=== PATIENT | male | born 1955 | race Caucasian/White ===

== ENCOUNTER 2021-12-08 10:41 | Inpatient (IN) | payer MEDICARE ==
[~2021-12-08] VITALS: Ht 177.8 cm; Wt 124.7 kg
[~2021-12-08 10:41] MED LIST: ALEVE220 M1 PO; AMBIEN10 MG; CLINDAMYCIN HC300 MG; IBUPROFEN600 MG; LOVENOX40 MG/0.4; NORCO 7.5-3251 EACH; PREVACID15 M2 PO; ULTRAM50 MG PO; VALIUM5 MG; Z.0.PREDNISONE5 MG PO; Z.0.ULTRAM 50MG50 MG EP; ZOFRAN ODT4 MG PO; [UNRECOGNIZED DRUG - OTHER] PO
[2021-12-08] MEDS ORDERED: SODIUM CHLORIDE 0.9% 1000ML 1,000 ML IV STA (11:05)
[2021-12-08] MEDS ORDERED: Morphine 4mg INJECTION 4 MG/ML INJ IV STA (11:05)
[2021-12-08 11:14] LABS: BASOPHILS % 0.3 % (0.0-1.0); EOSINOPHILS % 0.3 % (0.0-6.0); HEMATOCRIT 43.7 % (38.2-49.6); HEMOGLOBIN 14.1 g/dL (14.0-18.0); LYMPHOCYTES # (AUTO) 1.1 (1.0-3.2); LYMPHOCYTES % 8.3 % (18.0-39.1); MEAN CORPUSCULAR HEMOGLOBIN 33.7 pg (28-32); MEAN CORPUSCULAR HGB CONC 32.3 g/dL (31-35); MEAN CORPUSCULAR VOLUME 104.3 fL (81-99); MONOCYTES # (AUTO) 0.8 (0.2-0.8); NEUTROPHILS # (AUTO) 11.1 (2.1-6.9); NEUTROPHILS % 84.7 % (38.7-80.0); PLATELET COUNT 194 x10e3/uL (140-360); RED BLOOD COUNT 4.19 x10e6/uL (4.3-5.7); RED CELL DISTRIBUTION WIDTH 14.6 % (11.7-14.4)
[2021-12-08] MEDS ORDERED: ONDANSETRON HCL INJ 2MG/ML 2ML 2 MG/ML VIAL IV ONE (11:20)
[2021-12-08 11:43] LABS: INR 1.05; PROTHROMBIN TIME 14.6 seconds (11.9-14.5)
[2021-12-08 11:44] LABS: PARTIAL THROMBOPLASTIN TIME 24.9 seconds (23.8-35.5)
[2021-12-08 11:53] LABS: ALANINE AMINOTRANSFERASE 26 IU/L (0-55); ALBUMIN 2.7 g/dL (3.5-5.0); ALBUMIN/GLOBULIN RATIO 0.8 (0.8-2.0); ALKALINE PHOSPHATASE 147 IU/L (40-150); ANION GAP 13.4 mmol/L (8-16); BLOOD UREA NITROGEN 8 mg/dL (7-26); BUN/CREATININE RATIO 8 (6-25); CALCIUM 7.9 mg/dL (8.4-10.2); CARBON DIOXIDE 22 mmol/L (22-29); CHLORIDE 108 mmol/L (98-107); CREATINE KINASE 80 IU/L (30-200); GLUCOSE 89 mg/dL (74-118); LIPASE 943 U/L (8-78); MAGNESIUM 1.7 MG/DL (1.3-2.1); POTASSIUM 3.4 mmol/L (3.5-5.1); SODIUM 140 mmol/L (136-145)
[2021-12-08 11:54] LABS: CHOL/HDL RATIO 2.2 (3.9-4.7); CHOLESTEROL 91 MD/DL (0-199); HDL CHOLESTEROL 42 MG/DL (40-60); LDL CHOLESTEROL 39 MG/DL (60-130); TRIGLYCERIDES 49 MG/DL (0-149)
[2021-12-08 12:02] LABS: AMPHETAMINES SCREEN,URINE NEGATIVE (NEGATIVE); BENZODIAZEPINES SCREEN,URINE NEGATIVE (NEGATIVE); CLARITY,URINE SL CLOUDY (CLEAR); COLOR,URINE YELLOW (YELLOW); LEUKOCYTE ESTERASE ,URINE NEGATIVE (NEGATIVE); PHENCYCLIDINE SCREEN,URINE NEGATIVE (NEGATIVE)
[2021-12-08 12:03] LABS: BACTERIA,URINE MODERATE /HPF; EPITHELIAL CELLS,URINE MODERATE /LPF; KETONES,URINE 2+ (NEGATIVE); NITRITE,URINE NEGATIVE (NEGATIVE); PROTEIN,URINE DIPSTICK 2+ (NEGATIVE); RBC,URINE 0-5 /HPF (0-5); URINE UROBILINOGEN 1 mg/dL (0.2 - 1)
[2021-12-08 12:04] LABS: AMORPHOUS SEDIMENT,URINE MODERATE (FEW); CALCIUM OXALATE CRYSTALS,UR FEW (FEW); WBC,URINE (MAN) 21-50 /HPF (0-5)
[2021-12-08] MEDS ORDERED: PROMETHAZINE 25MG/ NS 50ML (IV) IV ONE (12:15)
[2021-12-08] MEDS ORDERED: IOPAMIDOL 370 MG/ML 100 ML INFUS..BTL INJ ONE (12:47)
[2021-12-08] MEDS ORDERED: ONDANSETRON HCL INJ 2MG/ML 2ML 2 MG/ML VIAL IV NR (13:28)
[2021-12-08] MEDS ORDERED: HYDROMORPHONE 1MG/1ML INJ IV PRN (13:30)
[2021-12-08] MEDS ORDERED: HYDROMORPHONE 1MG/1ML INJ IV NR (13:30)
[2021-12-08] MEDS ORDERED: D5.45%NS/KCL 20MEQ 1,000 ML IV SCH (14:00)
[2021-12-08] MEDS ORDERED: PROMETHAZINE HCL (IM) 25 MG/ML VIAL IM PRN (14:00)
[2021-12-08] MEDS ORDERED: ONDANSETRON HCL INJ 2MG/ML 2ML 2 MG/ML VIAL IV PRN ×2 (14:00→18:45)
[2021-12-08 16:03] VITALS: BP 144/88
[2021-12-08 16:32] VITALS: BP 144/88
[2021-12-08] MEDS: HYDROMORPHONE 1MG/1ML INJ IV PRN ×2 (16:50→21:02)
[2021-12-08] MEDS: ONDANSETRON HCL INJ 2MG/ML 2ML 2 MG/ML VIAL IV PRN ×2 (18:36→22:28)
[2021-12-08] MEDS ORDERED: ACETAMINOPHEN 325 MG SUPP PR PRN (18:45)
[2021-12-08] MEDS ORDERED: D5NS/KCL 20MEQ 1,000 ML IV SCH (18:45)
[2021-12-08] MEDS ORDERED: PROMETHAZINE 12.5MG/ NACL 0.9% 12.5 MG/50 ML BAG IV PRN (18:45)
[2021-12-08] MEDS ORDERED: LORAZEPAM INJ 2 MG/ML VIAL IV PRN (19:00)
[2021-12-08 20:00] VITALS: BP 148/80
[2021-12-08] MEDS: LORAZEPAM INJ 2 MG/ML VIAL IV PRN (21:02)
[2021-12-09] VITALS (8 sets, daily range): BP systolic 100–141; BP diastolic 81–98
[2021-12-09] MEDS: LACTATED RINGER'S 1,000 ML INJ SCH ×4 (00:47→20:52)
[2021-12-09] MEDS: HYDROMORPHONE 1MG/1ML INJ IV PRN ×5 (02:10→22:05)
[2021-12-09] MEDS: LORAZEPAM INJ 2 MG/ML VIAL IV PRN (02:10)
[2021-12-09 06:10] LABS: BASOPHILS % 0.2 % (0.0-1.0); EOSINOPHILS # (AUTO) 0.1 (0.0-0.4); EOSINOPHILS % 0.6 % (0.0-6.0); HEMATOCRIT 40.3 % (38.2-49.6); HEMOGLOBIN 12.7 g/dL (14.0-18.0); LYMPHOCYTES # (AUTO) 0.9 (1.0-3.2); LYMPHOCYTES % 8.6 % (18.0-39.1); MEAN CORPUSCULAR HEMOGLOBIN 33.3 pg (28-32); MEAN CORPUSCULAR HGB CONC 31.5 g/dL (31-35); MEAN CORPUSCULAR VOLUME 105.8 fL (81-99); MONOCYTES # (AUTO) 0.7 (0.2-0.8); MONOCYTES % 6.8 % (4.4-11.3); NEUTROPHILS # (AUTO) 8.5 (2.1-6.9); NEUTROPHILS % 83.4 % (38.7-80.0); PLATELET COUNT 170 x10e3/uL (140-360); RED BLOOD COUNT 3.81 x10e6/uL (4.3-5.7); RED CELL DISTRIBUTION WIDTH 14.8 % (11.7-14.4)
[2021-12-09 07:02] LABS: ALBUMIN 2.4 g/dL (3.5-5.0); ALBUMIN/GLOBULIN RATIO 0.8 (0.8-2.0); ANION GAP 8.7 mmol/L (8-16); CREATININE, SERUM 0.88 mg/dL (0.72-1.25); POTASSIUM 3.7 mmol/L (3.5-5.1)
[2021-12-09 07:32] LABS: MAGNESIUM 1.7 MG/DL (1.3-2.1)
[2021-12-09 07:53] LABS: THYROID STIMULATING HORMONE 0.86 uIU/mL (0.350-4.940)
[2021-12-09] MEDS: ONDANSETRON HCL INJ 2MG/ML 2ML 2 MG/ML VIAL IV PRN ×4 (08:19→22:05)
[2021-12-09] MEDS: TAMSULOSIN HCL 0.4 MG CAP PO SCH ×2 (16:35→17:00)
[2021-12-09] MEDS: ENOXAPARIN SOD INJ 40 MG/0.4 ML SYR SC SCH (16:35)
[2021-12-10] VITALS (7 sets, daily range): BP systolic 99–122; BP diastolic 64–82
[2021-12-10] MEDS: LACTATED RINGER'S 1,000 ML INJ SCH ×3 (02:06→19:55)
[2021-12-10] MEDS: ONDANSETRON HCL INJ 2MG/ML 2ML 2 MG/ML VIAL IV PRN ×3 (02:06→22:09)
[2021-12-10] MEDS: LORAZEPAM INJ 2 MG/ML VIAL IV PRN (02:06)
[2021-12-10] MEDS: HYDROMORPHONE 1MG/1ML INJ IV PRN ×5 (02:06→22:09)
[2021-12-10 06:02] LABS: BASOPHILS % 0.4 % (0.0-1.0); EOSINOPHILS # (AUTO) 0.2 (0.0-0.4); EOSINOPHILS % 2.5 % (0.0-6.0); HEMATOCRIT 40.6 % (38.2-49.6); HEMOGLOBIN 12.9 g/dL (14.0-18.0); LYMPHOCYTES % 14.6 % (18.0-39.1); MEAN CORPUSCULAR HEMOGLOBIN 34.3 pg (28-32); MEAN CORPUSCULAR HGB CONC 31.8 g/dL (31-35); MONOCYTES # (AUTO) 0.6 (0.2-0.8); NEUTROPHILS # (AUTO) 5.1 (2.1-6.9); NEUTROPHILS % 74.2 % (38.7-80.0); PLATELET COUNT 155 x10e3/uL (140-360); RED BLOOD COUNT 3.76 x10e6/uL (4.3-5.7)
[2021-12-10 06:34] LABS: ALBUMIN/GLOBULIN RATIO 0.6 (0.8-2.0); ANION GAP 11.2 mmol/L (8-16); CALCIUM 7.6 mg/dL (8.4-10.2); CREATININE, SERUM 0.81 mg/dL (0.72-1.25); MAGNESIUM 1.5 MG/DL (1.3-2.1); PHOSPHORUS 2.5 MG/DL (2.3-4.7); POTASSIUM 4.2 mmol/L (3.5-5.1)
[2021-12-10] MEDS: IRON SUCROSE 100 MG in SODIUM CHLORIDE 0.9% 100 ML 100 ML IV SCH (09:50)
[2021-12-10] MEDS: Vancomycin IV 1 GM in SODIUM CHLORIDE 0.9% 250ML 250 ML IV SCH ×2 (11:45→21:02)
[2021-12-10] MEDS: ENOXAPARIN SOD INJ 40 MG/0.4 ML SYR SC SCH (17:04)
[2021-12-10] MEDS: TAMSULOSIN HCL 0.4 MG CAP PO SCH (17:04)
[2021-12-11] VITALS (7 sets, daily range): BP systolic 97–110; BP diastolic 70–86
[2021-12-11 06:44] LABS: ALBUMIN 2.2 g/dL (3.5-5.0); ALBUMIN/GLOBULIN RATIO 0.6 (0.8-2.0); ANION GAP 12.3 mmol/L (8-16); CALCIUM 7.8 mg/dL (8.4-10.2); CHOL/HDL RATIO 2.8 (3.9-4.7); CREATININE, SERUM 0.86 mg/dL (0.72-1.25); POTASSIUM 4.3 mmol/L (3.5-5.1)
[2021-12-11] MEDS: ONDANSETRON HCL INJ 2MG/ML 2ML 2 MG/ML VIAL IV PRN ×2 (07:11→20:09)
[2021-12-11] MEDS: HYDROMORPHONE 1MG/1ML INJ IV PRN ×4 (07:11→20:09)
[2021-12-11] MEDS: LACTATED RINGER'S 1,000 ML INJ SCH ×2 (08:58→15:00)
[2021-12-11] MEDS: IRON SUCROSE 100 MG in SODIUM CHLORIDE 0.9% 100 ML 100 ML IV SCH (08:58)
[2021-12-11] MEDS: Vancomycin IV 1 GM in SODIUM CHLORIDE 0.9% 250ML 250 ML IV SCH (08:59)
[2021-12-11] MEDS: AMYLAS/CELLU/LIPAS/PROTEA/BILE 12,000 UNIT CAP PO SCH ×2 (12:08→16:31)
[2021-12-11] MEDS: TAMSULOSIN HCL 0.4 MG CAP PO SCH (16:31)
[2021-12-11] MEDS: ENOXAPARIN SOD INJ 40 MG/0.4 ML SYR SC SCH (16:31)
[2021-12-12] VITALS (9 sets, daily range): BP systolic 102–128; BP diastolic 59–94
[2021-12-12] MEDS: HYDROMORPHONE 1MG/1ML INJ IV PRN ×2 (01:30→23:07)
[2021-12-12] MEDS: ONDANSETRON HCL INJ 2MG/ML 2ML 2 MG/ML VIAL IV PRN ×2 (01:30→23:08)
[2021-12-12] MEDS: LACTATED RINGER'S 1,000 ML INJ SCH ×3 (01:55→22:40)
[2021-12-12 08:29] LABS: ALBUMIN 2.1 g/dL (3.5-5.0); ALBUMIN/GLOBULIN RATIO 0.6 (0.8-2.0); ANION GAP 10.6 mmol/L (8-16); CALCIUM 7.5 mg/dL (8.4-10.2); CREATININE, SERUM 0.85 mg/dL (0.72-1.25); POTASSIUM 3.6 mmol/L (3.5-5.1)
[2021-12-12] MEDS ORDERED: BISACODYL 10 MG SUPP PR PRN (09:15)
[2021-12-12] MEDS ORDERED: MAGNESIUM HYDROXIDE 30 ML UDC PO PRN (09:15)
[2021-12-12] MEDS: AMYLAS/CELLU/LIPAS/PROTEA/BILE 12,000 UNIT CAP PO SCH ×3 (09:20→17:00)
[2021-12-12] MEDS ORDERED: BISACODYL 5 MG TAB EC PO ONE (10:00)
[2021-12-12] MEDS ORDERED: BISACODYL 10 MG SUPP PR ONE (10:00)
[2021-12-12] MEDS ORDERED: MAGNESIUM HYDROXIDE 30 ML UDC PO ONE (10:00)
[2021-12-12] MEDS: IRON SUCROSE 100 MG in SODIUM CHLORIDE 0.9% 100 ML 100 ML IV SCH (10:48)
[2021-12-12] MEDS: SENNA-S TABLET PO SCH ×2 (11:05→17:47)
[2021-12-12] MEDS: ENOXAPARIN SOD INJ 40 MG/0.4 ML SYR SC SCH (17:00)
[2021-12-12] MEDS: TAMSULOSIN HCL 0.4 MG CAP PO SCH (17:47)
[2021-12-13 00:13] VITALS: BP 106/65
[2021-12-13 05:16] VITALS: BP 105/81
[2021-12-13] MEDS: ONDANSETRON HCL INJ 2MG/ML 2ML 2 MG/ML VIAL IV PRN (06:06)
[2021-12-13] MEDS: HYDROMORPHONE 1MG/1ML INJ IV PRN (06:06)
[2021-12-13] MEDS: AMYLAS/CELLU/LIPAS/PROTEA/BILE 12,000 UNIT CAP PO SCH (07:30)
[2021-12-13 08:02] VITALS: BP 120/86
[2021-12-13 08:20] VITALS: BP 120/86
[2021-12-13] MEDS: SENNA-S TABLET PO SCH (09:39)
[2021-12-13] MEDS ORDERED: OYST-CAL-D 500MG TABLET PO SCH (10:00)
== END 2021-12-13 10:30 | disposition home or self-care (01) | DRG 871 ==
LOC: ER 11:03 → ERHOLD 13:54 → MED/SURG3 15:45
PROVIDERS: ADMIT Internal Medicine; ATTEND Internal Medicine
DX: A40.8 Other streptococcal sepsis (principal); K85.20 Alcohol induced acute pancreatitis without necrosis or infection; J90 Pleural effusion, not elsewhere classified; N39.0 Urinary tract infection, site not specified; K86.0 Alcohol-induced chronic pancreatitis; E44.1 Mild protein-calorie malnutrition; E21.3 Hyperparathyroidism, unspecified; E83.51 Hypocalcemia; K76.0 Fatty (change of) liver, not elsewhere classified; E66.01 Morbid (severe) obesity due to excess calories; Z68.39 Body mass index [BMI] 39.0-39.9, adult; Z87.11 Personal history of peptic ulcer disease; K29.70 Gastritis, unspecified, without bleeding; K21.9 Gastro-esophageal reflux disease without esophagitis; Z88.1 Allergy status to other antibiotic agents; Z88.5 Allergy status to narcotic agent; Z88.0 Allergy status to penicillin; Z98.84 Bariatric surgery status; K42.9 Umbilical hernia without obstruction or gangrene; Z20.822 Contact with and (suspected) exposure to COVID-19
CPT/HCPCS: 36415; 71045; 74177; 80053; 80061; 80307; 80320; 81001; 82150; 82550; 82553; 82607; 82746; 83540; 83690; 83735; 83880; 83970; 84100; 84443; 84466; 84484; 85025; 85610; 85730; 86301; 87040; 87071; 87086; 87205; 93005; 99284; J0696; J1170; J1650; J1756; J2060; J2270; J2405; J2550; J3370; J7030; J7050; J7121; Q9967

== ENCOUNTER 2022-04-30 07:00 | Inpatient (IN) | payer MEDICARE ==
[~2022-04-30] VITALS: Ht 177.8 cm; Wt 124.7 kg
[2022-04-30 07:29] LABS: BASOPHILS # (AUTO) 0.1 (0.0-0.1); BASOPHILS % 0.5 % (0.0-1.0); EOSINOPHILS # (AUTO) 0.2 (0.0-0.4); EOSINOPHILS % 1.7 % (0.0-6.0); HEMOGLOBIN 13.9 g/dL (14.0-18.0); LYMPHOCYTES # (AUTO) 1.3 (1.0-3.2); LYMPHOCYTES % 11.4 % (18.0-39.1); MEAN CORPUSCULAR HGB CONC 32.3 g/dL (31-35); MEAN CORPUSCULAR VOLUME 105.1 fL (81-99); MONOCYTES # (AUTO) 0.9 (0.2-0.8); MONOCYTES % 8.2 % (4.4-11.3); NEUTROPHILS # (AUTO) 8.5 (2.1-6.9); NEUTROPHILS % 77.7 % (38.7-80.0); PLATELET COUNT 187 x10e3/uL (140-360); RED BLOOD COUNT 4.09 x10e6/uL (4.3-5.7); RED CELL DISTRIBUTION WIDTH 14.1 % (11.7-14.4)
[2022-04-30] MEDS ORDERED: Morphine 4mg INJECTION 4 MG/ML INJ IV STA (07:39)
[2022-04-30] MEDS ORDERED: ONDANSETRON HCL INJ 2MG/ML 2ML 2 MG/ML VIAL ONE (07:40)
[2022-04-30 07:44] LABS: INR 0.96; PARTIAL THROMBOPLASTIN TIME 32.6 seconds (23.8-35.5); PROTHROMBIN TIME 13.7 seconds (11.9-14.5)
[2022-04-30] MEDS ORDERED: METOPROLOL TARTRATE 25 MG TAB PO ONE (07:45)
[2022-04-30] MEDS ORDERED: METOPROLOL TARTRATE INJ 1 MG/ML VIAL IV ONE (07:45)
[2022-04-30] MEDS ORDERED: ONDANSETRON HCL INJ 2MG/ML 2ML 2 MG/ML VIAL IV STA (07:47)
[2022-04-30 07:53] LABS: ALANINE AMINOTRANSFERASE 48 IU/L (0-55); ALBUMIN 2.6 g/dL (3.5-5.0); ALBUMIN/GLOBULIN RATIO 0.7 (0.8-2.0); ALKALINE PHOSPHATASE 138 IU/L (40-150); ANION GAP 16.4 mmol/L (8-16); BLOOD UREA NITROGEN 15 mg/dL (7-26); BUN/CREATININE RATIO 14 (6-25); CALCIUM 8.9 mg/dL (8.4-10.2); CARBON DIOXIDE 20 mmol/L (22-29); CHLORIDE 105 mmol/L (98-107); CREATINE KINASE 31 IU/L (30-200); CREATININE, SERUM 1.04 mg/dL (0.72-1.25); GLUCOSE 96 mg/dL (74-118); POTASSIUM 3.4 mmol/L (3.5-5.1); SODIUM 138 mmol/L (136-145)
[2022-04-30] MEDS ORDERED: IOPAMIDOL 370 MG/ML 100 ML INFUS..BTL INJ ONE (08:33)
[2022-04-30 08:56] LABS: CLARITY,URINE CLEAR (CLEAR); COLOR,URINE YELLOW (YELLOW); KETONES,URINE 1+ (NEGATIVE); LEUKOCYTE ESTERASE ,URINE NEGATIVE (NEGATIVE); NITRITE,URINE NEGATIVE (NEGATIVE); PROTEIN,URINE DIPSTICK 1+ (NEGATIVE); URINE UROBILINOGEN 1 mg/dL (0.2 - 1)
[2022-04-30 09:14] LABS: BACTERIA,URINE FEW /HPF; EPITHELIAL CELLS,URINE FEW /LPF; RBC,URINE 0-5 /HPF (0-5); WBC,URINE (MAN) >50 /HPF (0-5)
[2022-04-30] MEDS: METOPROLOL TARTRATE 50 MG TAB PO SCH ×2 (09:15→17:58)
[2022-04-30 09:23] LABS: CHOL/HDL RATIO 2.2 (3.9-4.7)
[2022-04-30] MEDS: METRONIDAZOLE 500MG/NS 100ML 100 ML IV SCH ×3 (10:15→23:59)
[2022-04-30] MEDS ORDERED: ENOXAPARIN SOD INJ 60 MG/0.6 ML SYR SC ONE (10:30)
[2022-04-30] MEDS: SODIUM CHLORIDE 0.9% 1000ML 1,000 ML IV SCH ×2 (11:05→17:58)
[2022-04-30] MEDS: HYDROMORPHONE 1MG/1ML INJ IV PRN ×4 (11:05→21:34)
[2022-04-30] MEDS: ONDANSETRON HCL INJ 2MG/ML 2ML 2 MG/ML VIAL IV PRN (13:30)
[2022-04-30 20:08] VITALS: BP 130/104
[2022-04-30 21:07] LABS: CREATINE KINASE 67 IU/L (30-200)
[2022-04-30] MEDS: ENOXAPARIN SOD INJ 120 MG/0.8 ML SYR SC SCH (21:33)
[2022-04-30 22:24] VITALS: BP 103/70
[2022-05-01] VITALS (8 sets, daily range): BP systolic 87–111; BP diastolic 60–87
[2022-05-01] MEDS: HYDROMORPHONE 1MG/1ML INJ IV PRN ×3 (02:28→14:07)
[2022-05-01] MEDS: ONDANSETRON HCL INJ 2MG/ML 2ML 2 MG/ML VIAL IV PRN ×2 (02:28→06:38)
[2022-05-01] MEDS: SODIUM CHLORIDE 0.9% 1000ML 1,000 ML IV SCH ×2 (02:35→13:31)
[2022-05-01 05:00] LABS: BASOPHILS % 0.5 % (0.0-1.0); EOSINOPHILS # (AUTO) 0.1 (0.0-0.4); EOSINOPHILS % 1.1 % (0.0-6.0); HEMATOCRIT 37.7 % (38.2-49.6); LYMPHOCYTES # (AUTO) 0.8 (1.0-3.2); LYMPHOCYTES % 10.4 % (18.0-39.1); MEAN CORPUSCULAR HEMOGLOBIN 34.2 pg (28-32); MEAN CORPUSCULAR HGB CONC 31.8 g/dL (31-35); MEAN CORPUSCULAR VOLUME 107.4 fL (81-99); MONOCYTES # (AUTO) 0.6 (0.2-0.8); MONOCYTES % 7.6 % (4.4-11.3); NEUTROPHILS # (AUTO) 6.5 (2.1-6.9); PLATELET COUNT 175 x10e3/uL (140-360); RED BLOOD COUNT 3.51 x10e6/uL (4.3-5.7); RED CELL DISTRIBUTION WIDTH 14.5 % (11.7-14.4)
[2022-05-01 05:19] LABS: ALBUMIN 2.4 g/dL (3.5-5.0); ALBUMIN/GLOBULIN RATIO 0.8 (0.8-2.0); ANION GAP 14.2 mmol/L (8-16); CALCIUM 8.2 mg/dL (8.4-10.2); CREATININE, SERUM 0.96 mg/dL (0.72-1.25); POTASSIUM 4.2 mmol/L (3.5-5.1)
[2022-05-01] MEDS: METOPROLOL TARTRATE INJ 1 MG/ML VIAL IV PRN (05:28)
[2022-05-01] MEDS: METRONIDAZOLE 500MG/NS 100ML 100 ML IV SCH ×3 (05:28→17:55)
[2022-05-01 05:44] LABS: CREATINE KINASE 54 IU/L (30-200)
[2022-05-01 06:06] LABS: MAGNESIUM 1.6 MG/DL (1.3-2.1); PHOSPHORUS 3.2 MG/DL (2.3-4.7)
[2022-05-01 06:28] LABS: THYROID STIMULATING HORMONE 0.863 uIU/mL (0.350-4.940)
[2022-05-01] MEDS ORDERED: IOPAMIDOL 370 MG/ML 100 ML INFUS..BTL INJ ONE (08:57)
[2022-05-01] MEDS: GABAPENTIN 100 MG CAP PO SCH ×3 (09:30→21:09)
[2022-05-01] MEDS: METOPROLOL TARTRATE 50 MG TAB PO SCH ×2 (09:30→17:54)
[2022-05-01] MEDS: ENOXAPARIN SOD INJ 120 MG/0.8 ML SYR SC SCH ×2 (09:31→21:09)
[2022-05-01] MEDS: HYDROCODONE/APAP 10MG-325MG TAB PO SCH ×4 (09:34→17:55)
[2022-05-01 14:26] LABS: CREATINE KINASE 91 IU/L (30-200)
[2022-05-01] MEDS: IPRATROPIUM BROMIDE 0.02% 2.5 ML NEB NEB SCH (20:15)
[2022-05-02] VITALS (7 sets, daily range): BP systolic 91–116; BP diastolic 51–75
[2022-05-02] MEDS: METRONIDAZOLE 500MG/NS 100ML 100 ML IV SCH ×4 (00:25→17:10)
[2022-05-02] MEDS: IPRATROPIUM BROMIDE 0.02% 2.5 ML NEB NEB SCH ×4 (01:20→20:15)
[2022-05-02] MEDS: HYDROCODONE/APAP 10MG-325MG TAB PO SCH ×3 (06:14→18:11)
[2022-05-02] MEDS: SODIUM CHLORIDE 0.9% 1000ML 1,000 ML IV SCH ×2 (06:14→08:45)
[2022-05-02] MEDS: ENOXAPARIN SOD INJ 120 MG/0.8 ML SYR SC SCH (08:45)
[2022-05-02] MEDS: GABAPENTIN 100 MG CAP PO SCH ×3 (08:45→21:48)
[2022-05-02] MEDS: METOPROLOL TARTRATE INJ 1 MG/ML VIAL IV PRN (08:46)
[2022-05-02] MEDS: METOPROLOL TARTRATE 50 MG TAB PO SCH ×2 (08:47→17:10)
[2022-05-02 09:14] LABS: ALBUMIN 2.5 g/dL (3.5-5.0); ALBUMIN/GLOBULIN RATIO 0.8 (0.8-2.0); ANION GAP 14.8 mmol/L (8-16); CALCIUM 8.3 mg/dL (8.4-10.2); CREATININE, SERUM 0.95 mg/dL (0.72-1.25); POTASSIUM 3.8 mmol/L (3.5-5.1)
[2022-05-02] MEDS: AMIODARONE HCL 200 MG TAB PO SCH ×2 (11:01→17:10)
[2022-05-02] MEDS ORDERED: AMIODARONE HCL 200 MG TAB ONE (11:14)
[2022-05-02] MEDS: AMYLAS/CELLU/LIPAS/PROTEA/BILE 12,000 UNIT CAP PO SCH ×2 (13:03→17:10)
[2022-05-02] MEDS: APIXABAN 5 MG TABLET PO SCH (17:10)
[2022-05-03] VITALS: BP 98/65
[2022-05-03] MEDS: IPRATROPIUM BROMIDE 0.02% 2.5 ML NEB NEB SCH ×2 (00:55→07:05)
[2022-05-03 05:00] VITALS: BP 92/63
[2022-05-03] MEDS: HYDROCODONE/APAP 10MG-325MG TAB PO SCH ×2 (06:00→07:21)
[2022-05-03 06:12] LABS: BASOPHILS # (AUTO) 0.1 (0.0-0.1); BASOPHILS % 0.9 % (0.0-1.0); EOSINOPHILS # (AUTO) 0.3 (0.0-0.4); EOSINOPHILS % 4.5 % (0.0-6.0); HEMATOCRIT 32.4 % (38.2-49.6); HEMOGLOBIN 10.6 g/dL (14.0-18.0); LYMPHOCYTES # (AUTO) 1.1 (1.0-3.2); LYMPHOCYTES % 16.6 % (18.0-39.1); MEAN CORPUSCULAR HEMOGLOBIN 34.5 pg (28-32); MEAN CORPUSCULAR HGB CONC 32.7 g/dL (31-35); MEAN CORPUSCULAR VOLUME 105.5 fL (81-99); MONOCYTES # (AUTO) 0.6 (0.2-0.8); MONOCYTES % 8.8 % (4.4-11.3); NEUTROPHILS # (AUTO) 4.4 (2.1-6.9); PLATELET COUNT 191 x10e3/uL (140-360); RED BLOOD COUNT 3.07 x10e6/uL (4.3-5.7); RED CELL DISTRIBUTION WIDTH 14.6 % (11.7-14.4)
[2022-05-03 06:30] LABS: ANION GAP 11.4 mmol/L (8-16); CALCIUM 7.6 mg/dL (8.4-10.2); CREATININE, SERUM 0.95 mg/dL (0.72-1.25); POTASSIUM 3.4 mmol/L (3.5-5.1)
[2022-05-03] MEDS: METRONIDAZOLE 500MG/NS 100ML 100 ML IV SCH ×2 (06:45)
[2022-05-03 08:00] VITALS: BP 92/64
[2022-05-03 08:35] VITALS: BP 92/64
[2022-05-03] MEDS: METOPROLOL TARTRATE 50 MG TAB PO SCH (08:44)
[2022-05-03] MEDS: APIXABAN 5 MG TABLET PO SCH (08:44)
[2022-05-03] MEDS: AMIODARONE HCL 200 MG TAB PO SCH (08:45)
[2022-05-03] MEDS: GABAPENTIN 100 MG CAP PO SCH (08:45)
[2022-05-03] MEDS: AMYLAS/CELLU/LIPAS/PROTEA/BILE 12,000 UNIT CAP PO SCH (08:51)
[2022-05-03] MEDS ORDERED: OMEPRAZOLE40 MG PO (09:44)
[2022-05-03] MEDS ORDERED: CELEBREX200 MG PO (09:45)
[2022-05-03] MEDS ORDERED: ONDANSETRON ODT4 MG PO (09:46)
[2022-05-03] MEDS ORDERED: AMIODARONE HCL200 MG PO (09:47)
[2022-05-03] MEDS ORDERED: ULTRAM50 MG PO (09:47)
[2022-05-03] MEDS ORDERED: ELIQUIS5 MG PO (09:48)
[2022-05-03] MEDS ORDERED: NEURONTIN300 MG PO (09:48)
[2022-05-03] MEDS ORDERED: LOPRESSOR25 MG PO (09:49)
[2022-05-03] MEDS ORDERED: ONDANSETRON HCL 4 MG ORAL DISINTEGRATING TAB PO PRN (10:30)
[2022-05-03] MEDS ORDERED: METRONIDAZOLE 500 MG TAB PO SCH (12:00)
[2022-05-03] MEDS ORDERED: PANTOPRAZOLE SOD 40 MG TABEC PO SCH (16:30)
== END 2022-05-03 10:45 | disposition home or self-care (01) | DRG 438 ==
LOC: ER 07:20 → ERHOLD 08:58 → MED/SURG2 20:02
PROVIDERS: ADMIT Internal Medicine; ATTEND Internal Medicine
DX: K85.90 Acute pancreatitis without necrosis or infection, unspecified (principal); I26.93 Single subsegmental thrombotic pulmonary embolism without acute cor pulmonale; I48.0 Paroxysmal atrial fibrillation; K86.1 Other chronic pancreatitis; Z79.01 Long term (current) use of anticoagulants; J44.9 Chronic obstructive pulmonary disease, unspecified; Z87.11 Personal history of peptic ulcer disease; K21.9 Gastro-esophageal reflux disease without esophagitis; Z87.891 Personal history of nicotine dependence; I10 Essential (primary) hypertension; Z98.84 Bariatric surgery status; F10.11 Alcohol abuse, in remission; R60.0 Localized edema; Z20.822 Contact with and (suspected) exposure to COVID-19; E87.8 Other disorders of electrolyte and fluid balance, not elsewhere classified; Z88.1 Allergy status to other antibiotic agents; Z88.0 Allergy status to penicillin
CPT/HCPCS: 0223U; 36415; 71045; 71260; 74177; 80048; 80053; 80061; 81001; 82150; 82550; 82553; 83036; 83690; 83735; 83880; 84100; 84443; 84484; 85025; 85610; 85730; 93005; 93970; 94640; 94799; 99284; J1170; J1650; J2270; J2405; J7030; Q9967